=== PATIENT | male | born 1995 | race Caucasian/White ===

== ENCOUNTER 2018-01-17 00:30 | Inpatient (IN) ==
[2018-01-17 00:55] LABS: Basophils % 0.2 %; Eosinophils # 0.2 K/mcL (0.0-0.6); Eosinophils % 1.9 %; Hematocrit 45.4 % (37.5-50.1); Hemoglobin 15.7 g/dL (12.9-16.9); Immature Granulocytes % 0.3 % (0-4); Lymphocytes # 1.7 K/mcL (0.6-4.6); Lymphocytes % 14.1 %; Mean Corpuscular HGB Conc 34.6 g/dL (31.6-35.5); Mean Corpuscular Hemoglobin 32.3 pg (28.0-33.3); Mean Corpuscular Volume 93.4 fL (83.0-100.0); Mean Platelet Volume 10.1 fL (9.4-12.4); Monocytes # 0.9 K/mcL (0.0-1.3); Monocytes % 6.9 %; Neutrophils # 9.5 K/mcL (1.6-8.9); Platelet Count 264 K/mcL (140-400); Red Blood Count 4.86 M/mcL (4.19-5.50); Red Cell Distribution Width 13.1 % (11.5-14.5); Segmented Neutrophils % 76.6 %
[2018-01-17 01:14] LABS: Acetaminophen < 10 mcg/mL (10-20); BUN/Creatinine Ratio 14 (6-26); Blood Urea Nitrogen 16 mg/dL (6-20); Calcium 9.4 mg/dL (8.6-10.3); Carbon Dioxide 27 mEq/L (23-29); Chloride 104 mEq/L (98-107); Ethanol < 10 mg/dL (Less than 10); Glucose 92 mg/dL (70-105); Osmolality,Calculated 289 (280-300); Potassium 3.4 mEq/L (3.5-5.1); Salicylate < 2.5 mg/dL (15.0-30.0); Sodium 139 mEq/L (136-145); eGFR For African Americans > 60 (> 60); eGFR For Non-African Americans > 60 (> 60)
--- NOTE | 2018-01-17 01:21 | Emergency Department Note ---
Disposition Clinical Impression: Suicide attempt Disposition: Admitted As Inpatient Condition: Good Psych HPI - General Chief Complaint: ED Psychiatric Symptoms Stated Complaint: suicidal Time Seen by Provider: 01/17/18 01:02 Source: patient - History of Present Illness HPI Narrative: 22-year-old male prior history of suicide attempt or trying to hang himself who presents to the ER with his mother after delivery 2. Reports he was kayaking today and tried to hang himself. He states no reason for doing it. No new stressors in his life. His mother states he has been more depressed and talking about suicide. He states that he just wants to go home that everything so okay. He denies any current thoughts of harm to himself or others. No auditory or visual hallucinations. No medications for any psychiatric illnesses. No other complaints. Onset (ago): hour(s) History of similar episodes: Yes Alleged intoxication: No Associated Psychiatric Symptoms: depression Self harm or harm to others: denies thoughts of harming self/others, denies having a plan - Related Data Allergies Allergy/AdvReac Type Severity Reaction Status Date / Time No Known Allergies Allergy Verified 05/19/16 19:40 Review of Systems: As Per HPI Past Medical History - Past Medical History Attestation: Yes The following information was validated with the patient. Source: patient Medical history: Reports: no medical history Surgical history: Reports: other Psychiatric history: Denies: prior suicide attempt, previous psychiatric hospitalization - Social History Smoking Status: Never smoker Smokeless Tobacco Status: Yes Alcohol use: Reports: heavy Drug use: Reports: none, IV Drug Use Physical Exam - General Limitations: no limitations General appearance: alert, in no apparent distress - Head Head exam: atraumatic, normocephalic - Eye Eye exam: Present: normal appearance - ENT ENT exam: normal exam - Neck Neck exam: Present: normal inspection, other (Abrasion over the anterior neck) - Chest Chest inspection: Present: normal inspection, symmetric chest wall rise - Respiratory Respiratory exam: Present: normal lung sounds bilaterally - Cardiovascular Cardiovascular exam: Present: regular rate, normal rhythm, normal heart sounds - Extremities Exam Extremities exam: Present: normal inspection, full ROM - Expanded Upper Extremity Exam Shoulder exam: Present: normal inspection, full ROM Arm exam: Present: normal inspection, full ROM Elbow exam: Present: normal inspection, full ROM Forearm/Wrist exam: Present: normal inspection, full ROM Hand exam: Present: normal inspection, full ROM - Expanded Lower Extremity Exam Hip/Pelvis exam: Present: normal inspection, full ROM Upper leg exam: Present: normal inspection, full ROM Knee exam: Present: normal inspection, full ROM Lower leg exam: Present: normal inspection, full ROM Ankle exam: Present: normal inspection, full ROM Foot/toe exam: Present: normal inspection, full ROM - Expanded Psychiatric Exam Expanded psych exam: Present: poor eye contact Course Course Narrative: Patient seen and examined. [facility] for attempted suicide. Medical clearance for psychiatric evaluation. Vital Signs Temperature 98.0 F 01/17/18 00:31 Pulse Rate 99 01/17/18 00:31 Respiratory Rate 20 01/17/18 00:31 Blood Pressure 136/90 01/17/18 00:31 O2 Sat by Pulse Oximetry 98 01/17/18 00:31 Temperature 98.0 F 01/17/18 00:31 Pulse Rate 99 01/17/18 00:31 Respiratory Rate 20 01/17/18 00:31 Blood Pressure 136/90 01/17/18 00:31 O2 Sat by Pulse Oximetry 98 01/17/18 00:31 Oxygen Delivery Oxygen Delivery Room Air Psych - MDM Narrative Medical decision making narrative: 22-year-old male with attempted suicide today by hanging. Prior history of this in the past. Medically cleared and evaluated by the psychiatric service here who will admit him for further management. - Lab Data Lab results reviewed: Yes I reviewed the patient's lab results. Result diagrams: 01/17/18 00:34 01/17/18 00:34 Lab Results 01/17/18 01/17/18 01/17/18 Range/Units 00:34 00:34 01:17 WBC 12.4 H (4.3-11.1) K/mcL RBC 4.86 (4.19-5.50) M/mcL Hgb 15.7 (12.9-16.9) g/dL Hct 45.4 (37.5-50.1) % MCV 93.4 (83.0-100.0) fL MCH 32.3 (28.0-33.3) pg MCHC 34.6 (31.6-35.5) g/dL RDW 13.1 (11.5-14.5) % Plt Count 264 (140-400) K/mcL MPV 10.1 (9.4-12.4) fL Immature Gran % 0.3 (0-4) % Seg Neutrophils % 76.6 % Lymphocytes % 14.1 % Monocytes % 6.9 % Eosinophils % 1.9 % Basophils % 0.2 % Neutrophils # 9.5 H (1.6-8.9) K/mcL Lymphocytes # 1.7 (0.6-4.6) K/mcL Monocytes # 0.9 (0.0-1.3) K/mcL Eosinophils # 0.2 (0.0-0.6) K/mcL Basophils # 0.0 (0.0-0.2) K/mcL Sodium 139 (136-145) mEq/L Potassium 3.4 L (3.5-5.1) mEq/L Chloride 104 (98-107) mEq/L Carbon Dioxide 27 (23-29) mEq/L BUN 16 (6-20) mg/dL Creatinine 1.11 (0.70-1.30) mg/dL Est GFR ( Amer) > 60 (> 60) Est GFR (Non-Af Amer) > 60 (> 60) BUN/Creatinine Ratio 14 (6-26) Glucose 92 (70-105) mg/dL Calculated Osmolality 289 (280-300) Calcium 9.4 (8.6-10.3) mg/dL Urine Color Dark Yellow (Yellow) Urine Clarity Clear (Clear) Urine pH 5.5 (5.0-8.0) pH Units Ur Specific [place] > 1.030 H (1.010-1.025) Urine Protein Trace (Neg-Trace) mg/dL Urine Glucose (UA) Normal (Normal) mg/dL Urine Ketones 15 H (Negative) mg/dL Urine Blood Negative (Negative) Urine Nitrite Negative (Negative) Urine Bilirubin Small H (Negative) Urine Urobilinogen Normal (Normal) mg/dL Ur Leukocyte Esterase Negative (Negative) Urine Microscopic RBC 0-3 (0-3) per hpf Urine Microscopic WBC 3-5 H (0-3) per hpf Ur Squamous Epith Cells Moderate H (None-Few) per lpf Urine Bacteria Few (None-Few) per hpf Hyaline Casts Test Not Performed Urine Mucus Moderate H (Few) Urine Yeast Test Not Performed Ur Culture Indicated? NO (NO) Salicylates < 2.5 L (15.0-30.0) mg/dL Urine Opiates Screen (Ebkswn=625) ng/mL Acetaminophen < 10 L (10-20) mcg/mL Ur Barbiturates Screen (Ykxvww=807) ng/mL Ur Phencyclidine Scrn (Cutoff=25) ng/mL Ur Amphetamines Screen (Bftgtk=5628) ng/mL U Benzodiazepines Scrn (Wduapj=759) ng/mL Urine Cocaine Screen (Cutoff= 300) ng/mL U Marijuana (THC) Screen (Cutoff = 50) ng/mL Ethyl Alcohol < 10 (Less than 10) mg/dL 01/17/18 Range/Units 01:17 WBC (4.3-11.1) K/mcL RBC (4.19-5.50) M/mcL Hgb (12.9-16.9) g/dL Hct (37.5-50.1) % MCV (83.0-100.0) fL MCH (28.0-33.3) pg MCHC (31.6-35.5) g/dL RDW (11.5-14.5) % Plt Count (140-400) K/mcL MPV (9.4-12.4) fL Immature Gran % (0-4) % Seg Neutrophils % % Lymphocytes % % Monocytes % % Eosinophils % % Basophils % % Neutrophils # (1.6-8.9) K/mcL Lymphocytes # (0.6-4.6) K/mcL Monocytes # (0.0-1.3) K/mcL Eosinophils # (0.0-0.6) K/mcL Basophils # (0.0-0.2) K/mcL Sodium (136-145) mEq/L Potassium (3.5-5.1) mEq/L Chloride (98-107) mEq/L Carbon Dioxide (23-29) mEq/L BUN (6-20) mg/dL Creatinine (0.70-1.30) mg/dL Est GFR ( Amer) (> 60) Est GFR (Non-Af Amer) (> 60) BUN/Creatinine Ratio (6-26) Glucose (70-105) mg/dL Calculated Osmolality (280-300) Calcium (8.6-10.3) mg/dL Urine Color (Yellow) Urine Clarity (Clear) Urine pH (5.0-8.0) pH Units Ur Specific [place] (1.010-1.025) Urine Protein (Neg-Trace) mg/dL Urine Glucose (UA) (Normal) mg/dL Urine Ketones (Negative) mg/dL Urine Blood (Negative) Urine Nitrite (Negative) Urine Bilirubin (Negative) Urine Urobilinogen (Normal) mg/dL Ur Leukocyte Esterase (Negative) Urine Microscopic RBC (0-3) per hpf Urine Microscopic WBC (0-3) per hpf Ur Squamous Epith Cells (None-Few) per lpf Urine Bacteria (None-Few) per hpf Hyaline Casts Urine Mucus (Few) Urine Yeast Ur Culture Indicated? (NO) Salicylates (15.0-30.0) mg/dL Urine Opiates Screen Negative (Schwiu=828) ng/mL Acetaminophen (10-20) mcg/mL Ur Barbiturates Screen Negative (Ceqtiz=090) ng/mL Ur Phencyclidine Scrn Negative (Cutoff=25) ng/mL Ur Amphetamines Screen Negative (Csbdea=4033) ng/mL U Benzodiazepines Scrn Negative (Omexzh=730) ng/mL Urine Cocaine Screen Positive H (Cutoff= 300) ng/mL U Marijuana (THC) Screen Negative (Cutoff = 50) ng/mL Ethyl Alcohol (Less than 10) mg/dL Psychiatric Medical Clearance - Medical Clearance Checklist Medical History: No Social History Section defined Current Vitals: Last Vital Signs Temp 98.0 F 01/17/18 00:31 Pulse 99 01/17/18 00:31 Resp 20 01/17/18 00:31 BP 136/90 01/17/18 00:31 Pulse Ox 98 01/17/18 00:31 Psychiatric Lab Panel: Drug Levels and Toxicity 01/17/18 01/17/18 00:34 01:17 Urine Opiates Screen Negative Acetaminophen < 10 L Ur Barbiturates Screen Negative Ur Phencyclidine Scrn Negative Ur Amphetamines Screen Negative U Benzodiazepines Scrn Negative Urine Cocaine Screen Positive H U Marijuana (THC) Screen Negative Ethyl Alcohol < 10 Abnormal Labs: Abnormal lab results WBC 12.4 K/mcL (4.3-11.1) H 01/17/18 00:34 Neutrophils # 9.5 K/mcL (1.6-8.9) H 01/17/18 00:34 Potassium 3.4 mEq/L (3.5-5.1) L 01/17/18 00:34 Ur Specific [place] > 1.030 (1.010-1.025) H 01/17/18 01:17 Urine Ketones 15 mg/dL (Negative) H 01/17/18 01:17 Urine Bilirubin Small (Negative) H 01/17/18 01:17 Urine Microscopic WBC 3-5 per hpf (0-3) H 01/17/18 01:17 Ur Squamous Epith Cells Moderate per lpf (None-Few) H 01/17/18 01:17 Urine Mucus Moderate (Few) H 01/17/18 01:17 Salicylates < 2.5 mg/dL (15.0-30.0) L 01/17/18 00:34 Acetaminophen < 10 mcg/mL (10-20) L 01/17/18 00:34 Urine Cocaine Screen Positive ng/mL (Cutoff= 300) H 01/17/18 01:17 Attestation Statement - Attestation Attestation: I examined this patient and my medical decision-making was reviewed with the Resident Physician. I agree with the documented findings, disposition and treatment plan as described except to the extent set forth below. Findings consistent with suicidal ideations. We will proceed with admission to [facility] for further management. Patient was medically cleared.
[2018-01-17 01:27] LABS: Bilirubin,Urine Small (Negative); Blood,Urine Negative (Negative); Clarity,Urine Clear (Clear); Color,Urine Dark Yellow (Yellow); Glucose,Urine (UA) Normal (Normal); Ketones,Urine 15 mg/dL (Negative); Leukocyte Esterase,Urine Negative (Negative); Nitrite,Urine Negative (Negative); PH,Urine 5.5 pH Units (5.0-8.0); Protein,Urine Trace mg/dL (Neg-Trace); Specific Gravity,Urine > 1.030 (1.010-1.025); Urobilinogen,Urine Normal (Normal)
[2018-01-17 01:29] LABS: RBC,Urine 0-3 per hpf (0-3); Squamous Epithelial Cell,Urine Moderate per lpf (None-Few)
[2018-01-17 01:37] LABS: Amphetamine Screen,Urine Negative ng/mL (Cutoff=1000); Barbiturate Screen,Urine Negative ng/mL (Cutoff=200); Benzodiazepines Screen,Urine Negative ng/mL (Cutoff=200); Cannabinoid Screen,Urine Negative ng/mL (Cutoff = 50); Cocaine Screen,Urine Positive ng/mL (Cutoff= 300); Opiate Screen,Urine Negative ng/mL (Cutoff=300); Phencyclidine Screen,Urine Negative ng/mL (Cutoff=25)
[2018-01-17 01:43] LABS: Bacteria,Urine Few per hpf (None-Few)
[2018-01-17 01:44] LABS: Mucus,Urine Moderate (Few)
[2018-01-17] MEDS ORDERED: Haloperidol Lactate 5 MG/ML VIAL IM PRN (04:51)
[2018-01-17] MEDS ORDERED: *HR* LORazepam 2 MG/ML VIAL IM PRN (04:51)
[2018-01-17] MEDS ORDERED: *HR* LORazepam 1 MG TABLET PO PRN (04:51)
[2018-01-17] MEDS ORDERED: hydrOXYzine pamoate 25 MG CAPSULE PO PRN (04:51)
[2018-01-17] MEDS ORDERED: MOM Conc 10 ML UD.LIQ PO PRN (04:51)
[2018-01-17] MEDS ORDERED: traZODone 50 MG TABLET PO PRN (04:51)
[2018-01-17] MEDS ORDERED: Mag Hydrox/Al Hydrox/Simeth 30 ML UDC PO PRN (04:51)
[2018-01-17] MEDS ORDERED: Acetaminophen 325 MG TABLET PO PRN (04:51)
--- NOTE | 2018-01-17 10:01 | Psychiatry History & Physical ---
Date of Encounter: 01/17/18 Time of Encounter: 09:57 History of Present Illness Patient Stated Chief Complaint: Suicidal ideation and attempt to hang himself Medicare Admission Attestation: For traditional Medicare patients the provided hospital inpatient services are reasonable and necessary and in the case of services not specified as inpatient -only under 42 CFR 419.22 (n), that they are appropriately provided as inpatient services in accordance 42 CFR 412.3. For Critical Access Hospital the patient may reasonably be expected to be discharged or transferred to a hospital within 96 hours after admission to the Critical Access Hospital. Admitted From: Emergency Dept History of Present Illness: Mr. Ruth is a 22 year old male admitted from the emergency department for depression and suicidal ideation and attempt to hang himself. His report. Patient was brought in by his mother who stated that he is depressed and has been talking about suicide lately. Patient was guarded and not willing to give information listing stressors including financial and taking care of children and relationship issues. UDS was positive for cocaine. Patient minimizes his depression and suicidal thoughts and attempts and showing no interest in treatment. Patient was hospitalized in this units in 2016 with similar presentation and did not follow-up after discharge. He was diagnosed with adjustment disorder" dependence and personality disorder. Patient reports having psychiatric treatment as a child and cannot remember what medication was given to him and he believed no one can help him. Past Med Surg Social Fam HX - Past Medical History Medical history: no medical history - Past Psychiatric History Psychiatric history: Reports: depression, prior suicide attempt, previous psychiatric hospitalization Past psychiatric history details: Hospitalized in 2016 for suicidal ideation - Past Surgical History Surgical History: no surgical history, other - Social History Smoking Status: Never smoker Smokeless Tobacco Status: Yes Alcohol use: heavy Drug use: none, IV Drug Use Medications & Allergies 3 Allergy/AdvReac Type Severity Reaction Status Date / Time No Known Allergies Allergy Verified 05/19/16 19:40 Review of Systems Psychiatric: Reports: depression, abnormal sleep pattern, suicidal ideation, irritability Exam - HEENT Head exam IM: Present: atraumatic Eye exam IM: Present: EOMI, normal appearance, PERRL ENT exam IM: Present: normal exam - Neurological Neurological exam: Present: CN II-XII intact - Respiratory Respiratory exam IM: Present: CTAB - GI/Abdominal GI/Abdominal exam IM: Present: normal bowel sounds, soft. Absent: tenderness - Extremities Extremities exam IM: Present: full ROM - Skin Skin exam IM: Present: dry, warm - Constitutional Vitals: Temp Pulse Resp BP Pulse Ox 98.0 F 99 20 136/90 98 01/17/18 00:31 01/17/18 00:31 01/17/18 00:31 01/17/18 00:31 01/17/18 00:31 General appearance: age & developmentally appropriate, well-groomed, well- nourished - Musculoskeletal Gait: normal Station: relaxed Strength & Tone: normal for patient - Psychiatric Patient Orientation: Yes Person, Yes Time, Yes Place Level of alertness: Alert Behavior: calm, anxious, hostile, uncooperative, guarded Psychomotor activity: Normal Eye Contact: Maintains Eye Contact Mood Description: Euthymic/stable, Irritable Affect description: congruent with mood, labile, dysphoric Speech Volume: Normal Speech pattern: normal rate, normal rhythm, normal tone, fluent, spontaneous Language & Vocabulary: consistent with education Thought Process: Linear, Goal Oriented Thought Content: Yes Suicidal ideation, No Homicidal ideation, No Overt delusions Perceptual Disturbances: No Auditory hallucinations, No Visual hallucinations Attention Span Ability: Capable of Focused Attention Memory Description: Grossly Intact Patient Reliability: Reliable Historian Fund of knowledge: Yes abstraction ability, Yes average, Yes aware of current events Intelligence Estimate: Average Judgment: Limited Insight: Partial Results - Labs Labs: Laboratory Last Values WBC 12.4 K/mcL (4.3-11.1) H 01/17/18 00:34 RBC 4.86 M/mcL (4.19-5.50) 01/17/18 00:34 Hgb 15.7 g/dL (12.9-16.9) 01/17/18 00:34 Hct 45.4 % (37.5-50.1) 01/17/18 00:34 MCV 93.4 fL (83.0-100.0) 01/17/18 00:34 MCH 32.3 pg (28.0-33.3) 01/17/18 00:34 MCHC 34.6 g/dL (31.6-35.5) 01/17/18 00:34 RDW 13.1 % (11.5-14.5) 01/17/18 00:34 Plt Count 264 K/mcL (140-400) 01/17/18 00:34 MPV 10.1 fL (9.4-12.4) 01/17/18 00:34 Immature Gran % 0.3 % (0-4) 01/17/18 00:34 Seg Neutrophils % 76.6 % 01/17/18 00:34 Lymphocytes % 14.1 % 01/17/18 00:34 Monocytes % 6.9 % 01/17/18 00:34 Eosinophils % 1.9 % 01/17/18 00:34 Basophils % 0.2 % 01/17/18 00:34 Neutrophils # 9.5 K/mcL (1.6-8.9) H 01/17/18 00:34 Lymphocytes # 1.7 K/mcL (0.6-4.6) 01/17/18 00:34 Monocytes # 0.9 K/mcL (0.0-1.3) 01/17/18 00:34 Eosinophils # 0.2 K/mcL (0.0-0.6) 01/17/18 00:34 Basophils # 0.0 K/mcL (0.0-0.2) 01/17/18 00:34 Sodium 139 mEq/L (136-145) 01/17/18 00:34 Potassium 3.4 mEq/L (3.5-5.1) L 01/17/18 00:34 Chloride 104 mEq/L (98-107) 01/17/18 00:34 Carbon Dioxide 27 mEq/L (23-29) 01/17/18 00:34 BUN 16 mg/dL (6-20) 01/17/18 00:34 Creatinine 1.11 mg/dL (0.70-1.30) 01/17/18 00:34 Est GFR ( Amer) > 60 (> 60) 01/17/18 00:34 Est GFR (Non-Af Amer) > 60 (> 60) 01/17/18 00:34 BUN/Creatinine Ratio 14 (6-26) 01/17/18 00:34 Glucose 92 mg/dL (70-105) 01/17/18 00:34 Calculated Osmolality 289 (280-300) 01/17/18 00:34 Calcium 9.4 mg/dL (8.6-10.3) 01/17/18 00:34 Urine Color Dark Yellow (Yellow) 01/17/18 01:17 Urine Clarity Clear (Clear) 06/03/18 01:17 Urine pH 5.5 pH Units (5.0-8.0) 01/17/18 01:17 Ur Specific [place] > 1.030 (1.010-1.025) H 01/17/18 01:17 Urine Protein Trace mg/dL (Neg-Trace) 01/17/18 01:17 Urine Glucose (UA) Normal mg/dL (Normal) 01/17/18 01:17 Urine Ketones 15 mg/dL (Negative) H 01/17/18 01:17 Urine Blood Negative (Negative) 01/17/18 01:17 Urine Nitrite Negative (Negative) 01/17/18 01:17 Urine Bilirubin Small (Negative) H 01/17/18 01:17 Urine Urobilinogen Normal mg/dL (Normal) 01/17/18 01:17 Ur Leukocyte Esterase Negative (Negative) 01/17/18 01:17 Urine Microscopic RBC 0-3 per hpf (0-3) 01/17/18 01:17 Urine Microscopic WBC 3-5 per hpf (0-3) H 01/17/18 01:17 Ur Squamous Epith Cells Moderate per lpf (None-Few) H 01/17/18 01:17 Urine Bacteria Few per hpf (None-Few) 01/17/18 01:17 Hyaline Casts Test Not Performed 01/17/18 01:17 Urine Mucus Moderate (Few) H 01/17/18 01:17 Urine Yeast Test Not Performed 01/17/18 01:17 Ur Culture Indicated? NO (NO) 01/17/18 01:17 Salicylates < 2.5 mg/dL (15.0-30.0) L 01/17/18 00:34 Urine Opiates Screen Negative ng/mL (Ypjinl=474) 01/17/18 01:17 Acetaminophen < 10 mcg/mL (10-20) L 01/17/18 00:34 Ur Barbiturates Screen Negative ng/mL (Mhaidt=000) 01/17/18 01:17 Ur Phencyclidine Scrn Negative ng/mL (Cutoff=25) 01/17/18 01:17 Ur Amphetamines Screen Negative ng/mL (Odbnmw=0624) 01/17/18 01:17 U Benzodiazepines Scrn Negative ng/mL (Ttfour=891) 01/17/18 01:17 Urine Cocaine Screen Positive ng/mL (Cutoff= 300) H 01/17/18 01:17 U Marijuana (THC) Screen Negative ng/mL (Cutoff = 50) 01/17/18 01:17 Ethyl Alcohol < 10 mg/dL (Less than 10) 01/17/18 00:34 Assessment and Plan (1) Depression Current visit: No Status: Acute Plan: Admit inpatient for safety and stabilization, Close observation, Suicide Precautions per unit protocol, Encourage participation in unit milieu, Group Therapy, Monitor sleep, Monitor appetite Risks, benefits, side effects, alternatives discussed w/pt: No Patient agreeable to treatment: No (not willing to take meds) Estimated Length of Stay (Days): 5 Qualifiers: Depression Type: unspecified Qualified Code(s): F32.9 - Major depressive disorder, single episode, unspecified (2) Alcohol dependence Current visit: No Status: Acute Qualifiers: Substance use status: uncomplicated Qualified Code(s): F10.20 - Alcohol dependence, uncomplicated (3) Cocaine abuse Current visit: Yes Status: Acute Plan: Admit inpatient for safety and stabilization, Close observation, Suicide Precautions per unit protocol, Encourage participation in unit milieu, Group Therapy, Monitor sleep, Monitor appetite
--- NOTE | 2018-01-18 13:23 | Psychiatry Progress Note ---
Date of Encounter: 01/18/18 Time of Encounter: 12:35 Subjective Interval history: When I asked the patient how he was feeling he told me "a little bit of everything, anger, depression, frustration". When I asked him to explain what happened in regards to reported attempted hanging, he said that he put a rope in a tree but never put it around his neck or made a noose. I asked him if he truly wanted to kill himself and he said "no, that's why I went and got to the ER". When I asked him how he was feeling now, he told me that he was not feeling depressed. He told me he was feeling "pretty good". When I asked him about potentially being on psychiatric medications now or in the past, he told me that he was on psych meds when he was younger, but that they did not do any good and he did not think he needed them. The only medication he can recall being on was potentially Abilify. Patient had been on unit 1A approximate 2 months ago. I asked him if he did any of the follow-up after being on the unit at that time. He told me "No". He said he was close minded before. But after talking to his grandmother and his previous girlfriend, he knows that he needs to do some talk therapy to get some help. Recent stressors include breaking up with his girlfriend 2 weeks ago. She is the mother of his 2 youngest children. He also states that he is angry that he cannot get a loan for a new truck. He denies any financial problems at this time, states he is doing fine. He also states that he has been "drinking a lot " and using alcohol to cope with the stress. He states that he was drinking up to a case of beer per day, almost every day. He states that he stopped doing that about 2 weeks ago and believes that contributed to his thoughts, feelings and emotions when he threw rope over the tree and thought about hurting himself. As he is no longer using alcohol for coping, he has no coping skills to use. He states he does not want to , that he agrees with his grandmother and he needs to talk to someone to learn how the live life differently and is willing to get a therapist. He states he has 5 children to live for. He denies any current mood issues, suicidal/homicidal ideation, auditory or visual hallucinations. He states his sleep is better since he has been here and he is open to groups in learning how to improve his life to talk therapy. Review of Systems Psychiatric: Reports: depression, abnormal sleep pattern, suicidal ideation, irritability Results - Vital Signs Vital Signs: Temp Pulse Resp BP Pulse Ox 97.1 F L 78 16 135/92 98 01/18/18 09:00 01/18/18 09:00 01/18/18 09:00 01/18/18 09:00 01/17/18 00:31 Assessment and Plan (1) Depression Status: Acute Plan: Continue hospitalization, Close observation, Suicide Precautions per unit protocol, Encourage participation in unit milieu Risks, benefits, side effects , alternatives discussed w/pt: No Patient agreeable to treatment: Yes (not willing to take meds) Qualifiers: Depression Type: unspecified Qualified Code(s): F32.9 - Major depressive disorder, single episode, unspecified (2) Alcohol dependence Status: Acute Plan: Continue hospitalization, Encourage participation in unit milieu Qualifiers: Substance use status: uncomplicated Qualified Code(s): F10.20 - Alcohol dependence, uncomplicated Consult Discharge Plan - Plan Instructions: Depression (DC) Referrals: Ingrid Santo [Outside] - 01/20/18 4:30 pm (The above appointment is with [facility].) Psychiatry Exam - Constitutional Vitals: Temp Pulse Resp BP Pulse Ox 97.1 F L 78 16 135/92 98 01/18/18 09:00 01/18/18 09:00 01/18/18 09:00 01/18/18 09:00 01/17/18 00:31 General appearance: age & developmentally appropriate - Musculoskeletal Gait: normal Station: stiff Strength & Tone: normal for patient - Psychiatric Patient Orientation: Yes Person, Yes Time, Yes Place, Yes Circumstance Level of alertness: Alert Behavior: guarded Psychomotor activity: Normal Eye Contact: Maintains Eye Contact Mood Description: Anxious (mildly) Affect description: congruent with mood Speech Volume: Normal Speech pattern: normal rate, normal rhythm, normal tone Language & Vocabulary: consistent with education Thought Process: Intact, Goal Oriented Attention Span Ability: Capable of Focused Attention Memory Description: Grossly Intact Patient Reliability: Questionable Historian Fund of knowledge: Yes abstraction ability Intelligence Estimate: Average Judgment: Fair Insight: Partial
[2018-01-19 09:35] VITALS: BP 124/86
--- NOTE | 2018-01-19 17:18 | Discharge Summary ---
Date of Encounter: 01/19/18 Time of Encounter: 17:05 Diagnosis - Discharge Diagnosis (1) Depression Status: Acute Qualifiers: Depression Type: unspecified Qualified Code(s): F32.9 - Major depressive disorder, single episode, unspecified (2) Alcohol dependence Status: Acute Qualifiers: Substance use status: uncomplicated Qualified Code(s): F10.20 - Alcohol dependence, uncomplicated Medications - Discharge Medications No Known Home Drugs 01/19/18 [History] 3 Allergy/AdvReac Type Severity Reaction Status Date / Time No Known Allergies Allergy Verified 05/19/16 19:40 Provider Date of admission: 01/17/18 04:51 Primary care physician: PCP NONE Psychiatry Exam - Constitutional Vitals: Temp Pulse Resp BP Pulse Ox 97.9 F 55 16 124/86 98 01/19/18 09:00 01/19/18 09:00 01/19/18 09:00 01/19/18 09:00 01/17/18 00:31 General appearance: age & developmentally appropriate - Musculoskeletal Gait: normal Station: other Strength & Tone: normal for patient - Psychiatric Patient Orientation: Yes Person, Yes Time, Yes Place, Yes Circumstance Level of alertness: Alert Behavior: calm Psychomotor activity: Normal Eye Contact: Maintains Eye Contact Mood Description: Euthymic/stable Affect description: congruent with mood Speech Volume: Normal Speech pattern: normal rate, normal rhythm, normal tone Language & Vocabulary: consistent with education Thought Process: Intact, Logical, Linear, Goal Oriented Thought Content: Yes Intact Attention Span Ability: Capable of Focused Attention Memory Description: Grossly Intact Patient Reliability: Reliable Historian Fund of knowledge: Yes abstraction ability Intelligence Estimate: Average Judgment: Good Insight: Partial Hospital Course Hospital course: Mr. Ruth is a 22 year old male who was admitted to [facility] unit after feeling depressed and making a suicidal gesture of throwing a rope over the limb of a tree and threatening to hang himself. He states he never wanted to and came in to get some help after his grandmother told him he needed to get some counseling. He tells me he used to be on pysch meds as a child but felt like they never helped. He still does not want them. He denies being suicidal and tells me the gesture was a cry for help and support. He tells me that he knows some of the depression is from stopping drinking alcohol. As well as his recent separation from his girlfriend, the mother of his 2 youngest children. He is able to support his children, but was frustrated because he could not afford a new truck that he wanted. He states he quit drinking about 2 weeks ago and has had a difficult time being able to cope. He knows now that he used alcohol to help escape and not deal with his issues. Now that he is not drinking, he does not know how to cope appropriately. He is no longer feeling depressed. He has been socializing on the unit. He has support from his grandmother and will do as she tells him. His ex girlfriend and mother of his older children is very supportive and in his life encouraging him to get help and will support him in getting to appointments and improving his life. His sleep is good, his mood is stable. He denies SI/HI, A/V hallucinations. He is future oriented and open to getting therapy. He has an appointment with someone he thinks he can relate to. He had been on 1A previously and was set up with appointments, but did not like the therapist and never went back for help and support. Does patient wish to continue nicotine replacement upon disc: No - Time Spent with Patient Total time spent providing and/or coordinating discharge services: Assessment and Plan - Patient/Caregiver Discharge Instructions Activity: resume usual activities as tolerated Diet: regular diet - Follow up Plan Follow up with: Ingrid Santo [Outside] - 01/20/18 4:30 pm (The above appointment is with [facility] Functional capacity at discharge: independent ambulation Overall status at discharge: Stable Disposition: Home, Self-Care Quality - Multiple Antipsychotics Patient discharged on 2 or more antipsychotic medications: No Procedures - Procedures Procedures: Crisis Stabilization, Supportive Therapy, Psychoeducational Therapy
== END 2018-01-19 18:40 | disposition home or self-care (01) | DRG 881 ==
LOC: EMEROO 00:30 → 1ANU 00:30 → SUATTDRO 04:51 → 1ANU 05:07
PROVIDERS: ADMIT Psychiatry & Neurology Psychiatry; ATTEND Psychiatry & Neurology Psychiatry